=== PATIENT | female | born 1985 | race African-American/Black ===

== ENCOUNTER 2018-03-26 23:25 | Observation (INO) | payer OTHER ==
[2018-03-27 00:07] VITALS: BMI 31.6
[2018-03-27] MEDS ORDERED: ONDANSETRON 4 MG/2 ML VIAL IVPUSH ONE (00:45)
[2018-03-27] MEDS ORDERED: ACETAMINOPHEN 1000 MG/100 ML VIAL (NON FORMULARY) IVPB ONE (00:45)
--- NOTE | 2018-03-27 00:46 | PDOC ---
History of Present Illness - General Chief Complaint: Pain, Acute Stated Complaint: ABD PAIN Time Seen by Provider: 03/27/18 00:16 History Source: Patient Exam Limitations: No Limitations - History of Present Illness Initial Comments: 03/27/18 01:28 Patient is a 32-year-old female with no past medical history, who presents to emergency department today for abdominal pain. Patient states that her pain started approximately 1 week ago and it comes and goes. She states that today the pain was a 10 out of 10 and was over the whole abdomen. That time she came to the emergency Department the pain subsided to a 3 out of 10 and it radiates to her back. Nothing makes the pain better or worse. She states that now most of her pain is in the lower quadrants. Denies fevers, chills, shortness of breath, difficulty breathing, nausea vomiting and diarrhea. Pt is sexually active with one partner. Uses condoms regularly. Past History - Travel Traveled outside of the country in the last 30 days: No Close contact w/someone who was outside of country & ill: No - Past Medical History Allergies/Adverse Reactions: Allergies Allergy/AdvReac Type Severity Reaction Status Date / Time No Known Allergies Allergy Verified 03/27/18 00:08 Home Medications: Ambulatory Orders NK [No Known Home Medication] 02/11/16 - Immunization History Immunization Up to Date: Yes - Suicide/Smoking/Psychosocial Hx Smoking History: Never smoked Have you smoked in the past 12 months: No Number of Cigarettes Smoked Daily: 0 Cigars Per Day: 0 Hx Alcohol Use: No Drug/Substance Use Hx: No Review of Systems - Review of Systems Able to Perform ROS?: Yes Comments:: 03/27/18 00:46 CONSTITUTIONAL: Absent: fever, chills, diaphoresis, generalized weakness, malaise, loss of appetite HEENT: Absent: rhinorrhea, nasal congestion, throat pain, throat swelling, difficulty swallowing, mouth swelling, ear pain, eye pain, visual Changes CARDIOVASCULAR: Absent: chest pain, loss of consciousness, palpitations, irregular heart rate, peripheral edema RESPIRATORY: Absent: cough, shortness of breath, dyspnea with exertion, orthopnea, wheezing, stridor, hemoptysis GASTROINTESTINAL: Present: abdominal pain Absent: abdominal distension, nausea, vomiting, diarrhea , constipation, melena, hematochezia GENITOURINARY: Absent: dysuria, frequency, urgency, hesitancy, hematuria, flank pain, genital pain MUSCULOSKELETAL: Absent: myalgia, arthralgia, joint swelling SKIN: Absent: rash, itching, pallor HEMATOLOGIC/IMMUNOLOGIC: Absent: easy bleeding, easy bruising, lymphadenopathy, frequent infections ENDOCRINE: Absent: unexplained weight gain, unexplained weight loss, heat intolerance, cold intolerance NEUROLOGIC: Absent: headache, focal weakness or paresthesias, dizziness, unsteady gait, seizure, mental status changes, bladder or bowel incontinence PSYCHIATRIC: Absent: anxiety, depression, suicidal or homicidal ideation, hallucinations. Is the patient limited Upper Sorbian proficient: No *Physical Exam - Vital Signs Last Vital Signs Temp Pulse Resp BP Pulse Ox 98.5 F 81 18 108/70 100 03/26/18 23:59 03/26/18 23:59 03/26/18 23:59 03/26/18 23:59 03/26/18 23:59 - Physical Exam Comments: 03/27/18 00:46 GENERAL: Well developed, well nourished. Awake and alert. No acute distress. HEENT: Normocephalic, atraumatic. PERRLA, EOMI. No conjunctival pallor. Sclera are non- icteric. Moist mucous membranes. Oropharynx is clear. NECK: Supple. Full ROM. No JVD. Carotid pulses 2+ and symmetric, without bruits. No thyromegaly. No lymphadenopathy. CARDIOVASCULAR: Regular rate and rhythm. No murmurs, rubs, or gallops. Distal pulses are 2+ and symmetric. PULMONARY: No evidence of respiratory distress. Lungs clear to auscultation bilaterally. No wheezing, rales or rhonchi. ABDOMINAL: Discomfort of the LLQ and suprapubic area on palpation. Soft. No tenderness at this time. Non-distended. No rebound or guarding. No organomegaly. Normoactive bowel sounds. MUSCULOSKELETAL Normal range of motion at all joints. No bony deformities or tenderness. No CVA tenderness. EXTREMITIES: No cyanosis. No clubbing. No edema. No calf tenderness. SKIN: Warm and dry. Normal capillary refill. No rashes. No jaundice. NEUROLOGICAL: Alert, awake, appropriate. Cranial nerves 2-12 intact. No deficits to light touch and temperature in face, upper extremities and lower extremities. No motor deficits in the in face, upper extremities and lower extremities. Normoreflexic in the upper and lower extremities. Normal speech. Toes are down- going bilaterally. Gait is normal without ataxia. PSYCHIATRIC: Cooperative. Good eye contact. Appropriate mood and affect. ED Treatment Course - LABORATORY CBC & Chemistry Diagram: 03/27/18 01:18 03/27/18 01:18 Medical Decision Making - Medical Decision Making 03/27/18 05:32 Patient is a 32-year-old female with no past medical history, who presents to emergency department today for abdominal pain x1 week, worsening today -Exam with no focal findings at this time, mild discomfort to the LLQ and suprapubic region -VSS, afebrile -No leukocytosis, H&H stable -Labs remarkable for elevated liver enzymes (tripled) and elevated total bili at 1.2. -Possible kavon? -RUQ US ordered, waiting for US to return in morning for exam -Pt to be made ED obs -Will sign out to day team. *DC/Admit/Observation/Transfer Diagnosis at time of Disposition: Elevated liver enzymes Abdominal pain Qualifiers: Abdominal location: unspecified location Qualified Code(s): R10.9 - Unspecified abdominal pain - Discharge Dispostion Condition at time of disposition: Stable Decision to Admit order: Yes - Referrals Referrals: Laura Edgar MD [Primary Care Provider] - - Patient Instructions - Post Discharge Activity
[2018-03-27] MEDS ORDERED: ACETAMINOPHEN INJECTION 100 ML IVPB ONE (00:53)
[2018-03-27] MEDS ORDERED: ONDANSETRON 4 MG/2 ML VIAL ONE (00:53)
[2018-03-27 01:25] LABS: BASO % 0.7 % (0-2.0); EOS % 1.8 % (0-4.5); HEMATOCRIT 37.4 % (32.4-45.2); HEMOGLOBIN 12.8 GM/dL (10.7-15.3); LYMPH % 35.8 % (8-40); MCH 30.1 pg (25.7-33.7); MCHC 34.2 g/dl (32.0-36.0); MEAN CELL VOLUME 88.1 fl (80-96); MEAN PLT VOLUME 11.5 fl (7.5-11.1); MONO % 10.5 % (3.8-10.2); NEUT % 51.2 % (42.8-82.8); PLATELET COUNT 185 K/MM3 (134-434); RBC 4.25 M/mm3 (3.60-5.2); RDW 13.5 % (11.6-15.6)
[2018-03-27 01:26] LABS: URINE APPEARANCE CLEAR; URINE COLOR AMBER; URINE GLUCOSE (UA) NEGATIVE (NEGATIVE); URINE KETONE NEGATIVE (NEGATIVE); URINE LEUK ESTERASE NEGATIVE (NEGATIVE); URINE NITRITE NEGATIVE (NEGATIVE); URINE PROTEIN NEGATIVE (NEGATIVE); URINE UROBILINOGEN 4.0 E.U/dl mg/dL (0.2-1.0)
[2018-03-27 01:49] LABS: INR 1.06 (0.83-1.09)
[2018-03-27 01:49] LABS: HCG,QUALITATIVE URINE Negative
[2018-03-27 01:56] LABS: ALBUMIN 3.4 g/dl (3.4-5.0); ANION GAP 6 MMOL/L (8-16); BLOOD UREA NITROGEN 16 mg/dL (7-18); CALCIUM 8.7 mg/dL (8.5-10.1); CHLORIDE 106 mmol/L (98-107); CO2 26 mmol/L (21-32); CREATININE 0.9 mg/dL (0.55-1.3); GLUCOSE,RANDOM 100 mg/dL (74-106); POTASSIUM 3.8 mmol/L (3.5-5.1); SGOT/AST 203 U/L (15-37); SGPT/ALT 257 U/L (13-61); SODIUM 138 mmol/L (136-145)
[2018-03-27 01:58] LABS: ALK PHOS 184 U/L (45-117); BILIRUBIN,TOTAL 1.2 mg/dL (0.2-1); TOT PROT 7.2 g/dl (6.4-8.2)
--- NOTE | 2018-03-27 07:46 | PDOC ---
*Physical Exam - Vital Signs Last Vital Signs Temp Pulse Resp BP Pulse Ox 98.5 F 81 18 108/70 100 03/26/18 23:59 03/26/18 23:59 03/26/18 23:59 03/26/18 23:59 03/26/18 23:59 - Physical Exam Comments: 03/27/18 07:38 I assumed care for this 32-year-old female presenting with diffuse abdominal pain which has been intermittent for a week and has been worsened in last 24 hours. Patient with improve symptoms while the ED. Labs done shows elevated liver enzymes and bilirubin with normal UA. Ultrasound of right upper quadrant and CAT scan ordered to evaluate for liver problem and r/o acute abdomen pathology. Patient will be disposed based on imaging results. Medicines in made aware of patient General Appearance: Yes: Nourished, Appropriately Dressed. No: Apparent Distress Neck: positive: Supple. negative: Tender Respiratory/Chest: positive: Chest Tender, Lungs Clear, Normal Breath Sounds, Respiratory Distress Cardiovascular: positive: Regular Rhythm, Regular Rate, S1, S2. negative: Murmur Gastrointestinal/Abdominal: positive: Normal Bowel Sounds, Flat, Soft. negative : Tender, Organomegaly, Pulsatile Mass Musculoskeletal: positive: Normal Inspection Extremity: positive: Normal Inspection Neurologic: positive: Fully Oriented, Alert, Normal Mood/Affect ED Treatment Course - LABORATORY CBC & Chemistry Diagram: 03/27/18 01:18 03/27/18 01:18 - ADDITIONAL ORDERS Additional order review: Laboratory Results 03/27/18 03/27/18 03/27/18 01:18 01:18 01:15 PT with INR 12.00 INR 1.06 Sodium 138 Potassium 3.8 Chloride 106 Carbon Dioxide 26 Anion Gap 6 L BUN 16 Creatinine 0.9 Creat Clearance w eGFR > 60 Random Glucose 100 Calcium 8.7 Total Bilirubin 1.2 H AST 203 H ALT 257 H Alkaline Phosphatase 184 H Total Protein 7.2 Albumin 3.4 Lipase 171 Urine Color Urine Appearance Urine pH Ur Specific [place] Urine Protein Urine Glucose (UA) Urine Ketones Urine Blood Urine Nitrite Urine Bilirubin Urine Urobilinogen Ur Leukocyte Esterase Urine HCG, Qual 03/27/18 01:15 PT with INR INR Sodium Potassium Chloride Carbon Dioxide Anion Gap BUN Creatinine Creat Clearance w eGFR Random Glucose Calcium Total Bilirubin AST ALT Alkaline Phosphatase Total Protein Albumin Lipase Urine Color Yesi Urine Appearance Clear Urine pH 6.0 Ur Specific [place] 1.025 Urine Protein Negative Urine Glucose (UA) Negative Urine Ketones Negative Urine Blood Negative Urine Nitrite Negative Urine Bilirubin 2.0 Urine Urobilinogen 4.0 e.u/dl H Ur Leukocyte Esterase Negative Urine HCG, Qual Negative 03/27/18 01:18 RBC 4.25 MCV 88.1 MCHC 34.2 RDW 13.5 MPV 11.5 H Neutrophils % 51.2 Lymphocytes % 35.8 Monocytes % 10.5 H Eosinophils % 1.8 Basophils % 0.7 - Medications Given in the ED: ED Medications Discontinued Medications Generic Name Dose Route Start Last Admin Trade Name Morgan PRN Reason Stop Dose Admin Acetaminophen 1,000 mg 03/27/18 00:45 03/27/18 01:19 Ofirmev Injection - IVPB 03/27/18 00:46 1,000 mg ONCE ONE Administration Ondansetron HCl 4 mg 03/27/18 00:45 03/27/18 01:20 Zofran Injection IVPUSH 03/27/18 00:46 4 mg ONCE ONE Administration Progress Note - Progress Note Progress Note: I assumed care for this 32-year-old female presenting with diffuse abdominal pain which has been intermittent for a week and has been worsened in last 24 hours. Patient with improve symptoms while the ED. Labs done shows elevated liver enzymes and bilirubin with normal UA. Ultrasound of right upper quadrant and CAT scan ordered to evaluate for liver problem and r/o acute abdomen pathology. Patient will be disposed based on imaging results. Medicine team made aware of patient Medical Decision Making - Medical Decision Making 03/27/18 08:29 I assumed care for this 32-year-old female with no significant past medical history presenting with 1 week history of abdominal pain worsening over 24 hours with diffuse abdominal pain. CBC with no white count. Chemistry shows elevated liver enzymes and bilirubin. Patient with no pain right now and reported feeling better. Ultrasound of right upper quadrant and abdominal CT ordered. Patient will be disposed based on imaging results 03/27/18 10:09 Abdominal ultrasound shows gallstones with no evidence of cholecystitis. Abdominal CT scan pending 03/27/18 14:[address] with finings of trace pericolecystic fluid otherwise with no other acute findins. HIDA scan recommended to evaluate for pericolecystic fluid which shows no significant findings. Patient stable for home with discharge with GI follow-up for evelated liver enzyme *DC/Admit/Observation/Transfer Diagnosis at time of Disposition: Elevated liver enzymes Abdominal pain Qualifiers: Abdominal location: unspecified location Qualified Code(s): R10.9 - Unspecified abdominal pain - Discharge Dispostion Disposition: HOME Condition at time of disposition: Stable Decision to Admit order: No - Referrals - Patient Instructions - Post Discharge Activity
--- NOTE | 2018-03-27 07:56 | HP ---
CHIEF COMPLAINT: abdominal pain PCP: Dr. Edgar HISTORY OF PRESENT ILLNESS: Patient is a 32 year old female with a past medical history of gastric sleeve. She presents to the ED today with complaints of abdominal pain that actually began about 1 week ago and was intermittent. However, today, the pain was severe on all 4 quadrants which prompted and ED visit. In the ED, her pain again subsided to about 4/10 associated right sided back pain. Most of her pain is on the lower quadrants. No fever, chills, shortness of breath, nausea, vomiting, diarrhea or chest pain. Patient is sexually active, one partner and uses condoms. She denies any vaginal discharge, itching or bleeding. In the ED patient under went serial abdominal imaging as follows: Abdominal ultrasound: gall stones, no acute kavon seen Abdominal CT: HIDA scan recommended to rule out acute kavon HIDA scan: filling of gallbladder excludes acute cystic duct obstruction. Findings discussed with patient's primary care physician Dr. Edgar by attending in the ED as well as myself. Patient will be discharged home with close follow up with Dr. Wood. patient encouraged to make an appointment with him within 1 week of discharge. ER course was notable for: (1) ultrasound: galls stones, no acute kavon (2) abd ct, recommends hida scan, no abdominal pathology seen (3) elevated liver enzymes On exam, she denies any abdominal pain, nausea or vomiting. She denies diarrhea or bloating. States she feels better, want to go home. Willing to follow up with GI as an outpatient. PAST SURGICAL HISTORY: s/p gastric sleeve Social History: Smoking: denies Alcohol: denies Drugs: denies Family History: Allergies No Known Allergies Allergy (Verified 03/27/18 00:08) HOME MEDICATIONS: Home Medications Medication Instructions Recorded NK [No Known Home Medication] 02/11/16 PHYSICAL EXAMINATION Vital Signs - 24 hr 03/26/18 03/27/18 23:59 07:41 Temperature 98.5 F 98.4 F Pulse Rate 81 Pulse Rate [ 74 Apical] Respiratory 18 18 Rate Blood Pressure 108/70 Blood Pressure 106/62 [Left] O2 Sat by Pulse 100 100 Oximetry (%) GENERAL: Awake, alert, and fully oriented, in no acute distress. HEAD: Normal with no signs of trauma. EYES: Pupils equal, round and reactive to light, extraocular movements intact, sclera anicteric, conjunctiva clear. No lid lag. EARS, NOSE, THROAT: Ears normal, nares patent, oropharynx clear without exudates. Moist mucous membranes. NECK: Normal range of motion, supple without lymphadenopathy, JVD, or masses. LUNGS: Breath sounds equal, clear to auscultation bilaterally. No wheezes, and no crackles. No accessory muscle use. HEART: Regular rate and rhythm, normal S1 and S2 without murmur, rub or gallop. ABDOMEN: Soft, nontender, not distended, normoactive bowel sounds, no guarding, no rebound, no masses. No hepatomegaly or splenomegaly. MUSCULOSKELETAL: Normal range of motion at all joints. No bony deformities or tenderness. No CVA tenderness. UPPER EXTREMITIES: 2+ pulses, warm, well-perfused. No cyanosis. No clubbing. No peripheral edema. LOWER EXTREMITIES: 2+ pulses, warm, well-perfused. No calf tenderness. No peripheral edema. NEUROLOGICAL: Cranial nerves II-XII intact. Normal speech. Normal gait. PSYCHIATRIC: Cooperative. Good eye contact. Appropriate mood and affect. SKIN: Warm, dry, normal turgor, no rashes or lesions noted, normal capillary refill. Laboratory Results - last 24 hr 03/27/18 03/27/18 03/27/18 01:15 01:15 01:18 WBC 6.0 RBC 4.25 Hgb 12.8 Hct 37.4 MCV 88.1 MCH 30.1 MCHC 34.2 RDW 13.5 Plt Count 185 MPV 11.5 H Absolute Neuts (auto) 3.1 Neutrophils % 51.2 Lymphocytes % 35.8 Monocytes % 10.5 H Eosinophils % 1.8 Basophils % 0.7 Nucleated RBC % 0 PT with INR INR Sodium Potassium Chloride Carbon Dioxide Anion Gap BUN Creatinine Creat Clearance w eGFR Random Glucose Calcium Total Bilirubin AST ALT Alkaline Phosphatase Total Protein Albumin Lipase 171 Urine Color Yesi Urine Appearance Clear Urine pH 6.0 Ur Specific [place] 1.025 Urine Protein Negative Urine Glucose (UA) Negative Urine Ketones Negative Urine Blood Negative Urine Nitrite Negative Urine Bilirubin 2.0 Urine Urobilinogen 4.0 e.u/dl H Ur Leukocyte Esterase Negative Urine HCG, Qual Negative 03/27/18 03/27/18 01:18 01:18 WBC RBC Hgb Hct MCV MCH MCHC RDW Plt Count MPV Absolute Neuts (auto) Neutrophils % Lymphocytes % Monocytes % Eosinophils % Basophils % Nucleated RBC % PT with INR 12.00 INR 1.06 Sodium 138 Potassium 3.8 Chloride 106 Carbon Dioxide 26 Anion Gap 6 L BUN 16 Creatinine 0.9 Creat Clearance w eGFR > 60 Random Glucose 100 Calcium 8.7 Total Bilirubin 1.2 H AST 203 H ALT 257 H Alkaline Phosphatase 184 H Total Protein 7.2 Albumin 3.4 Lipase Urine Color Urine Appearance Urine pH Ur Specific [place] Urine Protein Urine Glucose (UA) Urine Ketones Urine Blood Urine Nitrite Urine Bilirubin Urine Urobilinogen Ur Leukocyte Esterase Urine HCG, Qual ASSESSMENT/PLAN: Patient is a 32 year old female with a past medical history of gastric sleeve. She presents to the ED today with complaints of abdominal pain that actually began about 1 week ago and was intermittent. However, today, the pain was severe on all 4 quadrants which prompted and ED visit. In the ED, her pain again subsided to about 4/10 associated right sided back pain. Most of her pain is on the lower quadrants. No fever, chills, shortness of breath, nausea, vomiting, diarrhea or chest pain. In the ED patient under went serial abdominal imaging as follows: Abdominal ultrasound: gall stones, no acute kavon seen Abdominal CT: HIDA scan recommended to rule out acute kavon HIDA scan: filling of gallbladder excludes acute cystic duct obstruction. Findings discussed with patient's primary care physician Dr. Edgar by attending in the ED as well as myself. Patient will be discharged home with close follow up with Dr. Wood. patient encouraged to make an appointment with him within 1 week of discharge. GI: Abdominal pain, resolved. Serial imaging negative for acute process. Elevated liver enzymes, monitor as an outpatient, no acute liver pathology seen on imaging. GI: follow up outpatient. Patient has been NPO, will give low NA diet. discharge home if she tolerates diet. full code Visit type - Emergency Visit Emergency Visit: Yes ED Registration Date: 03/27/18 Care time: The patient presented to the Emergency Department on the above date and was hospitalized for further evaluation of their emergent condition. - New Patient This patient is new to me today: Yes Date on this admission: 03/27/18 - Critical Care Critical Care patient: No Hospitalist Screening - Colonoscopy Questionnaire Colonoscopy Questionnaire: Colonoscopy Questionnaire - Patient: 50 - 75 years old and never had a screening colonoscopy: Unknown History of colon or rectal polyps, or CA: Unknown History of IBD, Crohn's disease or UC: Unknown History of abdominal radiation therapy as a child: Unknown - Relative: 1 with colon or rectal CA, or polyps at age 60 or younger: Unknown Colon or rectal CA diagnosed at age 45 or younger: Unknown Multiple relatives with colon or rectal CA: Unknown - Outcome: Screening Result: Negative Screen
[2018-03-27] MEDS ORDERED: PANTOPRAZOLE SODIUM 40 MG VIAL IVPUSH SCH (11:15)
[2018-03-27] MEDS ORDERED: SODIUM CHLORIDE 1,000 ML IV SCH (11:15)
--- NOTE | 2018-03-27 11:40 | CONSULT ---
Consult Consult Specialty:: General Surgery Referred by:: Aleksandr Reason for Consultation:: Gallstones - History of Present Illness Chief Complaint: Abdominal Pain - History Source History Provided By: Patient, Medical Record Limitations to Obtaining History: No Limitations - Past Medical History ...: No - Alcohol/Substance Use Hx Alcohol Use: No - Smoking History Smoking history: Never smoked Have you smoked in the past 12 months: No Aproximately how many cigarettes per day: 0 Home Medications - Allergies Allergies/Adverse Reactions: Allergies Allergy/AdvReac Type Severity Reaction Status Date / Time No Known Allergies Allergy Verified 03/27/18 00:08 - Home Medications Home Medications: Ambulatory Orders NK [No Known Home Medication] 02/11/16 Physical Exam Vital Signs: Vital Signs Temperature 98.4 F 03/27/18 07:41 Pulse Rate 74 03/27/18 07:41 Respiratory Rate 18 03/27/18 07:41 Blood Pressure 106/62 03/27/18 07:41 O2 Sat by Pulse Oximetry (%) 100 03/27/18 07:41 Labs: CBC, BMP 03/27/18 01:18 03/27/18 01:18
[2018-03-27] MEDS ORDERED: MORPHINE SULFATE 2 MG/ML VIAL IVPUSH PRN (11:56)
[2018-03-27] MEDS ORDERED: morphine SULFATE 4 MG/ML VIAL ONE (13:08)
[2018-03-27] MEDS ORDERED: morphine SULFATE 4 MG/ML VIAL IVPUSH ONE (14:00)
[2018-03-27 15:22] VITALS: BP 111/71; PULSE 64; TEMP 100.6
--- NOTE | 2018-03-27 16:29 | DS ---
Physical Exam: SUBJECTIVE: Patient seen and examined at the bedside. feels better, no abdominal pain, wants to eat OBJECTIVE: Vital Signs Period Temp Pulse Resp BP Sys/Nicolas Pulse Ox Last 24 Hr 98.4 F-100.6 F 64-81 18-18 106-111/62-71 99-100 PHYSICAL EXAM GENERAL: Awake, alert, and fully oriented, in no acute distress. HEAD: Normal with no signs of trauma. EYES: Pupils equal, round and reactive to light, extraocular movements intact, sclera anicteric, conjunctiva clear. No lid lag. EARS, NOSE, THROAT: Ears normal, nares patent, oropharynx clear without exudates. Moist mucous membranes. NECK: Normal range of motion, supple without lymphadenopathy, JVD, or masses. LUNGS: Breath sounds equal, clear to auscultation bilaterally. No wheezes, and no crackles. No accessory muscle use. HEART: Regular rate and rhythm, normal S1 and S2 without murmur, rub or gallop. ABDOMEN: Soft, nontender, not distended, normoactive bowel sounds, no guarding, no rebound, no masses. No hepatomegaly or splenomegaly. MUSCULOSKELETAL: Normal range of motion at all joints. No bony deformities or tenderness. No CVA tenderness. UPPER EXTREMITIES: 2+ pulses, warm, well-perfused. No cyanosis. No clubbing. No peripheral edema. LOWER EXTREMITIES: 2+ pulses, warm, well-perfused. No calf tenderness. No peripheral edema. NEUROLOGICAL: Cranial nerves II-XII intact. Normal speech. Normal gait. PSYCHIATRIC: Cooperative. Good eye contact. Appropriate mood and affect. SKIN: Warm, dry, normal turgor, no rashes or lesions noted, normal capillary refill. LABS Laboratory Results - last 24 hr 03/27/18 03/27/18 03/27/18 01:15 01:15 01:18 WBC 6.0 RBC 4.25 Hgb 12.8 Hct 37.4 MCV 88.1 MCH 30.1 MCHC 34.2 RDW 13.5 Plt Count 185 MPV 11.5 H Absolute Neuts (auto) 3.1 Neutrophils % 51.2 Lymphocytes % 35.8 Monocytes % 10.5 H Eosinophils % 1.8 Basophils % 0.7 Nucleated RBC % 0 PT with INR INR Sodium Potassium Chloride Carbon Dioxide Anion Gap BUN Creatinine Creat Clearance w eGFR Random Glucose Calcium Total Bilirubin AST ALT Alkaline Phosphatase Total Protein Albumin Lipase 171 Urine Color Yesi Urine Appearance Clear Urine pH 6.0 Ur Specific [place] 1.025 Urine Protein Negative Urine Glucose (UA) Negative Urine Ketones Negative Urine Blood Negative Urine Nitrite Negative Urine Bilirubin 2.0 Urine Urobilinogen 4.0 e.u/dl H Ur Leukocyte Esterase Negative Urine HCG, Qual Negative 03/27/18 03/27/18 01:18 01:18 WBC RBC Hgb Hct MCV MCH MCHC RDW Plt Count MPV Absolute Neuts (auto) Neutrophils % Lymphocytes % Monocytes % Eosinophils % Basophils % Nucleated RBC % PT with INR 12.00 INR 1.06 Sodium 138 Potassium 3.8 Chloride 106 Carbon Dioxide 26 Anion Gap 6 L BUN 16 Creatinine 0.9 Creat Clearance w eGFR > 60 Random Glucose 100 Calcium 8.7 Total Bilirubin 1.2 H AST 203 H ALT 257 H Alkaline Phosphatase 184 H Total Protein 7.2 Albumin 3.4 Lipase Urine Color Urine Appearance Urine pH Ur Specific [place] Urine Protein Urine Glucose (UA) Urine Ketones Urine Blood Urine Nitrite Urine Bilirubin Urine Urobilinogen Ur Leukocyte Esterase Urine HCG, Qual HOSPITAL COURSE: Date of Admission:03/27/18 Date of Discharge: 03/27/18 ASSESSMENT/PLAN: Patient is a 32 year old female with a past medical history of gastric sleeve. She presents to the ED today with complaints of abdominal pain that actually began about 1 week ago and was intermittent. However, today, the pain was severe on all 4 quadrants which prompted and ED visit. In the ED, her pain again subsided to about 4/10 associated right sided back pain. Most of her pain is on the lower quadrants. No fever, chills, shortness of breath, nausea, vomiting, diarrhea or chest pain. In the ED patient under went serial abdominal imaging as follows: Abdominal ultrasound: gall stones, no acute kavon seen Abdominal CT: HIDA scan recommended to rule out acute kavon HIDA scan: filling of gallbladder excludes acute cystic duct obstruction. Findings discussed with patient's primary care physician Dr. Edgar by attending in the ED as well as myself. Patient will be discharged home with close follow up with Dr. Wood. patient encouraged to make an appointment with him within 1 week of discharge. GI: Abdominal pain, resolved. Serial imaging negative for acute process. Elevated liver enzymes, monitor as an outpatient, no acute liver pathology seen on imaging. GI: follow up outpatient. Patient has been NPO, will give low NA diet. discharge home if she tolerates diet. full code Minutes to complete discharge: 60 Discharge Summary Reason For Visit: ELEVATED LFT, ABD PAIN Current Active Problems Abdominal pain (Acute) Elevated liver enzymes (Acute) Condition: Stable - Instructions Diet, Activity, Other Instructions: Your HIDA scan shows normal results. Please follow-up with referred GI as soon as possible for elevated liver enzymes., To emergency room if worsening abdominal pain, fever, nausea and vomiting. Referrals: Suzanne Lazo MD [Staff Physician] - 1 Week Laura Edgar MD [Primary Care Provider] - Disposition: HOME - Home Medications Comprehensive Discharge Medication List: Ambulatory Orders NK [No Known Home Medication] 02/11/16 This patient is new to me today: Yes Date on this admission: 03/27/18 Emergency Visit: Yes ED Registration Date: 03/27/18 Care time: The patient presented to the Emergency Department on the above date and was hospitalized for further evaluation of their emergent condition. Critical Care patient: No - Discharge Referral Referred to [facility] No
== END 2018-03-27 15:30 | disposition home or self-care (01) ==
LOC: JER 23:25 → JERBED 03-27 06:28
PROVIDERS: ADMIT Family Medicine; ATTEND Nurse Practitioner Family
PROC: 3E033GC Introduction of Other Therapeutic Substance into Peripheral Vein, Percutaneous Approach (ICD-10-PCS; principal; 2018-03-27)
PROC: 3E033GC Introduction of Other Therapeutic Substance into Peripheral Vein, Percutaneous Approach (ICD-10-PCS; 2018-03-27)
PROC: 3E033NZ Introduction of Analgesics, Hypnotics, Sedatives into Peripheral Vein, Percutaneous Approach (ICD-10-PCS; 2018-03-27)
PROC: 3E0337Z Introduction of Electrolytic and Water Balance Substance into Peripheral Vein, Percutaneous Approach (ICD-10-PCS; 2018-03-27)
PROC: 3E033NZ Introduction of Analgesics, Hypnotics, Sedatives into Peripheral Vein, Percutaneous Approach (ICD-10-PCS; 2018-03-27)
DX: R10.9 Unspecified abdominal pain (principal); R74.8 Abnormal levels of other serum enzymes; R17 Unspecified jaundice; K80.20 Calculus of gallbladder without cholecystitis without obstruction; Z98.84 Bariatric surgery status
CPT/HCPCS: 36415; 74177-TC; 76705-TC; 78226-TC; 80053; 81003; 83690; 84703; 85025; 85610; 87086; 99284-25; A9537; G0378; J0131; J7030

== ENCOUNTER 2021-09-06 11:30 | Inpatient (IN) | payer OTHER ==
[2021-09-06] MEDS ORDERED: AMPICILLIN SODIUM 2 GM VIAL ONE (13:11)
[2021-09-06] MEDS ORDERED: OXYTOCIN 30 UNITS in 0.9% NS 30 UNIT/500 ML INFUS.BAG IVPB ONE (13:22)
[2021-09-06] MEDS ORDERED: BUTORPHANOL TARTRATE 2 MG/ML VIAL ONE (13:22)
[2021-09-06] MEDS ORDERED: PROMETHAZINE HCL 25 MG/1 ML VIAL ONE (13:22)
[2021-09-06] MEDS ORDERED: PROMETHAZINE HCL 25 MG/1 ML VIAL IVPUSH ONE (13:38)
[2021-09-06] MEDS ORDERED: BUTORPHANOL TARTRATE 1 MG/ML VIAL IVPB ONE (13:38)
[2021-09-06] MEDS ORDERED: OXYTOCIN 30 UNITS in 0.9% NS 30 UNIT/500 ML INFUS.BAG IVPB SCH (13:45)
[2021-09-06] MEDS ORDERED: ELECTROLYTE-148 SOLN 1,000 ML IV SCH (13:45)
[2021-09-06] MEDS ORDERED: AMPICILLIN - 2 GM in SODIUM CHLORIDE 100 ML IVPB ONE (13:47)
[2021-09-06] MEDS ORDERED: AMPICILLIN - 1 GM in SODIUM CHLORIDE 100 ML IVPB ONE (13:52)
[2021-09-06 14:10] VITALS: BMI 36.6
[2021-09-06 14:11] LABS: BASO % 0.6 % (0-2.0); EOS % 0.4 % (0-4.5); HEMATOCRIT 29.8 % (32.4-45.2); HEMOGLOBIN 9.7 GM/dL (10.7-15.3); LYMPH % 15.7 % (8-40); MCH 24.7 pg (25.7-33.7); MCHC 32.4 g/dl (32.0-36.0); MEAN CELL VOLUME 76.2 fl (80-96); MEAN PLT VOLUME 9.2 fl (7.5-11.1); MONO % 8.4 % (3.8-10.2); NEUT % 74.9 % (42.8-82.8); PLATELET COUNT 181 10^3/uL (134-434); RBC 3.91 M/mm3 (3.60-5.2); RDW 15.9 % (11.6-15.6); WHITE BLOOD COUNT 5.8 K/mm3 (4.0-10.0)
[2021-09-06 14:18] LABS: INR 1.03 (0.83-1.09); PROTHROMBIN TIME (PATIENT) 11.8 SEC (9.7-13.0)
[2021-09-06 14:45] LABS: CALCIUM 8.6 mg/dL (8.5-10.1)
[2021-09-06 14:46] LABS: BLOOD UREA NITROGEN 6.5 mg/dL (7-18)
[2021-09-06 14:49] LABS: CREATININE 0.5 mg/dL (0.55-1.3)
[2021-09-06 15:16] LABS: SYPHILIS W/ RPR CONF NON-REACTIVE (NONREACTIVE)
[2021-09-06] MEDS ORDERED: FENTANYL/BUPIVACAINE/NS/PF - PCEA - 50 ML DISP.SYRIN EP ONE (15:43)
[2021-09-06] MEDS ORDERED: AMPICILLIN SODIUM 1 GM VIAL ONE (16:30)
[2021-09-06] MEDS ORDERED: OXYTOCIN 20 UNITS in 0.9% NS 20 UNIT/1,000 ML INFUS.BAG IV ONE (16:38)
[2021-09-06] MEDS ORDERED: LIDOCAINE HCL 1% PRESERVATIVE FREE - 30ML VIAL ONE (16:38)
[2021-09-06] MEDS ORDERED: NALOXONE HCL 0.4 MG/ML VIAL IVPUSH PRN (16:49)
[2021-09-06] MEDS ORDERED: FENTANYL/BUPIVACAINE/NS/PF - PCEA - 50 ML DISP.SYRIN EP SCH (17:00)
[2021-09-06] MEDS ORDERED: BENZOCAINE 28 GM HEMORRHOIDAL OINTMENT TP PRN (20:34)
[2021-09-06] MEDS ORDERED: METHYLERGONOVINE MALEATE 0.2 MG/1 ML AMP IM PRN (20:34)
[2021-09-06] MEDS ORDERED: oxyCODONE HCL 5 MG TABLET PO PRN (20:34)
[2021-09-06] MEDS ORDERED: BISACODYL 10 MG SUPP.RECT RC PRN (20:34)
[2021-09-06] MEDS ORDERED: BENZOCAINE 20% 57 GM BOTTLE TP PRN (20:34)
[2021-09-06] MEDS ORDERED: WITCH HAZEL 50% (TUCKS) 40 PAD/JAR PAD TP PRN (20:34)
[2021-09-06] MEDS ORDERED: OXYTOCIN 20 UNITS in 0.9% NS 20 UNIT/1,000 ML INFUS.BAG IV SCH (20:45)
[2021-09-06 21:14] LABS: CORD BASE EXCESS -4.1 mmol/L (0-2); CORD HCO3 21.4 mmHg (20-29); CORD pH 7.336 (7.14-7.44)
[2021-09-06] MEDS ORDERED: ACETAMINOPHEN 325 MG TABLET (FP) ONE (21:16)
[2021-09-06] MEDS: ACETAMINOPHEN 325 MG TABLET (FP) PO PRN (21:20)
[2021-09-07] MEDS: IBUPROFEN 600 MG TABLET (FP) PO PRN (01:54)
[2021-09-07 09:19] LABS: BASO % 0.2 % (0-2.0); EOS % 0.9 % (0-4.5); HEMATOCRIT 27.3 % (32.4-45.2); HEMOGLOBIN 9.3 GM/dL (10.7-15.3); MCH 25.6 pg (25.7-33.7); MCHC 33.9 g/dl (32.0-36.0); MEAN CELL VOLUME 75.5 fl (80-96); MEAN PLT VOLUME 9.5 fl (7.5-11.1); MONO % 8.4 % (3.8-10.2); NEUT % 80.5 % (42.8-82.8); PLATELET COUNT 166 10^3/uL (134-434); RBC 3.62 M/mm3 (3.60-5.2); RDW 15.6 % (11.6-15.6); WHITE BLOOD COUNT 9.7 K/mm3 (4.0-10.0)
[2021-09-07] MEDS: PRENATAL VITAMINS W/ FOLIC ACID TABLET (FP) PO SCH (11:21)
[2021-09-07] MEDS ORDERED: SENNOSIDES/DOCUSATE COMBO (SENNA PLUS) TABLET (UD) PO PRN (22:00)
[2021-09-08] MEDS: IBUPROFEN 600 MG TABLET (FP) PO PRN (06:19)
[2021-09-08] MEDS: ACETAMINOPHEN 325 MG TABLET (FP) PO PRN (07:59)
[2021-09-08] MEDS: PRENATAL VITAMINS W/ FOLIC ACID TABLET (FP) PO SCH (09:02)
[2021-09-08 10:51] VITALS: BP 107/70; PULSE 79; TEMP 98
[2021-09-08 13:41] LABS: HIV INTERPRETATION NEGATIVE (NEGATIVE)
== END 2021-09-08 13:52 | disposition home or self-care (01) | DRG 807 ==
LOC: JDEL 11:30 → JLDR 12:15 → J3W 22:00
PROVIDERS: ADMIT Obstetrics & Gynecology; ATTEND Obstetrics & Gynecology
PROC: 10E0XZZ Delivery of Products of Conception, External Approach (ICD-10-PCS; principal; 2021-09-06)
DX: O80 Encounter for full-term uncomplicated delivery (principal); Z37.0 Single live birth; Z3A.39 39 weeks gestation of pregnancy
CPT/HCPCS: 36415; 36600; 59409; 80048; 82803; 85025; 85610; 85730; 86780; 86850; 86900; 86901; 87389